=== PATIENT | female | born 1965 | race Caucasian/White ===

== ENCOUNTER 2016-10-20 13:58 | Outpatient (CLI) | payer OTHER | END 2016-10-20 13:59 | disposition home or self-care (01) | DX: Z12.31 Encounter for screening mammogram for malignant neoplasm of breast (principal); Z80.3 Family history of malignant neoplasm of breast ==

== ENCOUNTER 2019-01-10 13:01 | Outpatient (CLI) | payer OTHER ==
--- NOTE | 2019-01-11 08:46 | Mammography Report ---
Reason: SCREENING MAMMO Procedure Date: 01/10/2019 Accession Number: [id number] / [id number] Procedure: MGN - Screening Mammo Dig Bilat CPT Code: FULL RESULT: EXAM: Screening Mammo Dig Bilat DATE: 01/10/2019 1:46 PM CLINICAL HISTORY: Screening encounter. History of nulliparity. History of benign left breast biopsy in 2012. Family history of breast cancer in the mother at the age of 46. TECHNIQUE: (B) - Bilateral CC and MLO views were obtained. A left laterally exaggerated CC views obtained. COMPARISON: 10/20/2016 through 10/22/2009. PARENCHYMAL PATTERN: (D) - The breast(s) demonstrate(s) heterogeneously dense fibroglandular parenchyma. FINDINGS: A left breast biopsy marker and its surrounding area are unchanged. There are coarse typically benign calcifications. There are no suspicious masses, calcifications, or areas of distortion. IMPRESSION: Benign findings. BI-RADS category 2. RECOMMENDATION: (ANNUAL) - Recommend routine annual screening mammography. Left breast. BI-RADS CATEGORY: (2) - Benign Findings. STANDARD QUALIFYING STATEMENTS: 1. This examination was not reviewed with the aid of Computer-Aided Detection (CAD). 2. A negative or benign imaging report should not preclude biopsy if clinically suspicious findings are present. 3. Dense breasts may obscure an underlying neoplasm. 4. This examination was reviewed without the aid of 3D breast imaging (tomosynthesis).
== END 2019-01-10 13:02 | disposition home or self-care (01) ==
LOC: DI.N 13:01
PROVIDERS: ATTEND Internal Medicine
DX: Z12.31 Encounter for screening mammogram for malignant neoplasm of breast (principal); Z80.3 Family history of malignant neoplasm of breast
CPT/HCPCS: 77067

== ENCOUNTER 2020-04-09 13:36 | Outpatient (CLI) | payer OTHER ==
--- NOTE | 2020-04-11 08:15 | Mammography Report ---
BILATERAL DIGITAL SCREENING MAMMOGRAM 3D/2D: 04/09/2020 CLINICAL: Family history of breast cancer. Routine screening. Comparison is made to exams dated: 01/10/2019 mammogram, 10/20/2016 mammogram - [email or web address], 02/17/2014 mammogram, 03/14/2013 mammogram, 06/22/2012 ultrasound, and 06/22/2012 mammogram - [facility]. The tissue of both breasts is heterogeneously dense. This may lower the sensitivity of mammograp hy. There are biopsy clips in the left breast. No significant masses, calcifications, or other findings are seen in either breast. There has been no significant interval change. IMPRESSION: NEGATIVE There is no mammographic evidence of malignancy. A 1 year screening mammogram is recommended. This exam was interpreted at Station ID: [id number]. NOTE: For mammograms, a report in lay terms will be sent to the patient. Approximately 15% of breast malignancies will not be visualized mammographically. In the management of a palpable breast mass, a negative mammogram must not discourage biopsy of a clinically suspicious lesion. Electronically Signed By: Pb colon/emanirad:04/09/2020 18:31:02 ACR BI-RADS Category 1: Negative 3341F PARENCHYMAL PATTERN: (D) - The breast(s) demonstrate(s) heterogeneously dense fibroglandular rosemary morrissey. BI-RADS CATEGORY: (1) - 1 RECOMMENDATION: (ANNUAL) - Recommend routine annual screening mammography. [id number] 1 year screening LATERALITY: (B)
== END 2020-04-09 13:37 | disposition home or self-care (01) ==
LOC: DI.N 13:36
PROVIDERS: ATTEND Internal Medicine
DX: Z12.31 Encounter for screening mammogram for malignant neoplasm of breast (principal); Z80.3 Family history of malignant neoplasm of breast
CPT/HCPCS: 77063; 77067

== ENCOUNTER 2021-08-20 12:55 | Outpatient (CLI) | payer OTHER ==
--- NOTE | 2021-08-21 10:17 | Mammography Report ---
BILATERAL DIGITAL SCREENING MAMMOGRAM 3D/2D: 08/20/2021 CLINICAL: Routine screening. Family history of breast cancer. Comparison is made to exams dated: 04/09/2020 mammogram, 01/10/2019 mammogram, and 10/20/2016 mammogram - [facility]. The tissue of both breasts is heterogeneously dense. This may lower the sensitivity of mammography. There is a biopsy clip in the left breast. No significant masses, calcifications, or other findings are seen in either breast. There has been no significant interval change. IMPRESSION: NEGATIVE There is no mammographic evidence of malignancy. A 1 year screening mammogram is recommended. This exam was interpreted at Station ID: [id number]. NOTE: For mammograms, a report in lay terms will be sent to the patient. Approximately 15% of breast malignancies will not be visualized mammographically. In the management of a palpable breast mass, a negative mammogram must not discourage biopsy of a clinically suspicious lesion. Electronically Signed By: James gonsalez/pranay:08/20/2021 15:49:03 ACR BI-RADS Category 1: Negative 3341F PARENCHYMAL PATTERN: (D) - The breast(s) demonstrate(s) heterogeneously dense fibroglandular rosemary morrissey. BI-RADS CATEGORY: (1) - 1 RECOMMENDATION: (ANNUAL) - Recommend routine annual screening mammography. [id number] 1 year screening LATERALITY: (B)
== END 2021-08-20 12:56 | disposition home or self-care (01) ==
LOC: DI.S 12:55
PROVIDERS: ATTEND Internal Medicine
DX: Z12.31 Encounter for screening mammogram for malignant neoplasm of breast (principal); Z80.3 Family history of malignant neoplasm of breast

== ENCOUNTER 2022-11-19 13:11 | Outpatient (CLI) | payer OTHER ==
--- NOTE | 2022-11-20 10:16 | Mammography Report ---
BILATERAL DIGITAL SCREENING MAMMOGRAM 3D/2D: 11/19/2022 CLINICAL: Routine screening. Family history of breast cancer. Comparison is made to exams dated: 08/20/2021 mammogram, 04/09/2020 mammogram, and 01/10/2019 mammogram - . Both breasts are heterogeneously dense, which may obscure small masses (category c / 51-75% glandular tissue). There is a biopsy clip in the left breast. No significant masses, calcifications, or other findings are seen in either breast. There has been no significant interval change. IMPRESSION: NEGATIVE There is no mammographic evidence of malignancy. A 1 year screening mammogram is recommended. Based on Tyrer-Cuzick model (a risk assessment model), the patient's lifetime risk is 28.4% and her 1 0 year risk is 10.6%. If a patient has an elevated risk, a more comprehensive evaluation should be co nsidered and/or a referral to a genetic counselor. The [place] [employer], [place] [employer], and NCCN Guidelines advise the consideration of Breast MRI as an adjunct to screening mammo graphy in patients whose "Lifetime risk to develop breast cancer" is 20% or higher. This exam was interpreted at Station ID: [id number]. NOTE: For mammograms, a report in lay terms will be sent to the patient. Approximately 15% of breast malignancies will not be visualized mammographically. In the management of a palpable breast mass, a negative mammogram must not discourage biopsy of a clinically suspicious lesion. Electronically Signed By: Ceferino gorman/pranay:11/20/2022 07:42:56 letter sent: No_Letter ACR BI-RADS Category 1: Negative 3341F PARENCHYMAL PATTERN: (D) - The breast(s) demonstrate(s) heterogeneously dense fibroglandular parenchy ma. BI-RADS CATEGORY: (1) - 1 Mammogram [id number] 1 year screening LATERALITY: (B)
== END 2022-11-19 13:12 | disposition home or self-care (01) ==
LOC: DI.S 13:11
PROVIDERS: ATTEND Internal Medicine
DX: Z12.31 Encounter for screening mammogram for malignant neoplasm of breast (principal); Z80.3 Family history of malignant neoplasm of breast

== ENCOUNTER 2023-11-07 17:48 | Emergency (ER) | payer OTHER ==
[2023-11-07 18:00] VITALS: O2SAT 100
--- NOTE | 2023-11-07 18:00 | ED Physician Documentation ---
PD HPI NVD - Stated complaint Stated Complaint: VOMIT/DIARRHEA - Chief complaint Chief Complaint: Abd Pain - Additonal information Additional information: 58-year-old female no pertinent past medical history presents emergency department for 3 days of nausea vomiting diarrhea. Patient reports that she has had 29 episodes of diarrhea since Thursday with no alleviation of symptoms. She says that she feels very dehydrated with generalized abdominal pain and discomfort she said that she is able to keep down some chicken noodle soup today but now feels like it is stuck in her left lower quadrant. She says she is in a 10 out of 10 abdominal pain feels sharp shooting and it tends to move around. No hematemesis no dark black bowel movements denies any history of this happening before. She said that she originally thought maybe she ate something and was experiencing food poisoning but given that the symptoms are lasting now for 4 days she is worried that maybe she got a GI bug and is worried about dehydration. Supportive friend at bedside and drove her into the emergency department. No recent medication changes she says that she is unsure if she has had any fevers or chills but she is alternating between hot and cold quite frequently at home has not checked her temperature. PD PAST MEDICAL HISTORY - Allergies Allergies/Adverse Reactions: Allergies Allergy/AdvReac Type Severity Reaction Status Date / Time cortisone Allergy Hives Verified 11/07/23 17:56 atropine [From Lomotil] AdvReac Nausea Verified 11/07/23 17:55 codeine AdvReac Hallucinati Verified 11/07/23 17:56 ons diphenoxylate [From Lomotil] AdvReac Nausea Verified 11/07/23 17:55 - Social History Does the pt smoke?: Yes Smoking Status: Current every day smoker Does the pt have substance abuse?: No Substance Use and Type: Marijuana PD ED PE NORMAL - Vitals Vital signs reviewed: Yes - General General: Alert and oriented X 3, No acute distress, Well developed/nourished - HEENT HEENT: Atraumatic, PERRL - Cardiac Cardiac: RRR, No murmur, No gallop, Strong equal pulses - Respiratory Respiratory: No respiratory distress, Clear bilaterally - Abdomen Abdomen: Normal bowel sounds, Soft, Non distended, Other (Generalized abdominal tenderness with palpation) - Back Back: No CVA TTP - Derm Derm: Normal color, Warm and dry, No rash - Extremities Extremities: No edema, No calf tenderness / cord Results - Vitals Vitals: Vital Signs - 24 hr 11/07/23 11/07/23 11/07/23 17:49 19:43 20:04 Temperature 35.8 C L 37.3 C Heart Rate 93 73 72 Respiratory 28 H 16 18 Rate Blood Pressure 146/93 H 109/93 H 124/62 O2 Saturation 100 100 100 Oxygen O2 Source Room air - Labs Labs: Laboratory Tests 11/07/23 11/07/23 11/07/23 18:04 18:04 18:25 WBC 6.9 RBC 5.54 H Hgb 16.0 Hct 48.1 H MCV 86.8 MCH 28.9 MCHC 33.3 RDW 12.6 Plt Count 240 MPV 9.9 Neut # (Auto) 4.7 Lymph # (Auto) 1.5 [place] # (Auto) 0.7 Eos # (Auto) 0.0 Baso # (Auto) 0.0 Absolute Nucleated RBC 0.00 Nucleated RBC % 0.0 Sodium 135 Potassium 3.4 L Chloride 103 Carbon Dioxide 19 L Anion Gap 13.0 BUN 20 Creatinine 0.8 Estimated GFR (MDRD) 74 L Glucose 117 H Calcium 10.1 Magnesium 1.5 L Total Bilirubin 1.0 AST 27 ALT 29 Alkaline Phosphatase 65 Total Protein 8.2 Albumin 4.8 Globulin 3.4 Albumin/Globulin Ratio 1.4 Lipase 16 Urine Color Urine Clarity Urine pH Ur Specific [place] Urine Protein Urine Glucose (UA) Urine Ketones Urine Occult Blood Urine Nitrite Urine Bilirubin Urine Urobilinogen Ur Leukocyte Esterase Urine RBC Urine WBC Ur Squamous Epith Cells Urine Bacteria Urine Casts Urine Mucus Ur Microscopic Review Urine Culture Comments Nasal Adenovirus (PCR) NOT DETECTED Nasal B. parapertussis DNA (PCR) NOT DETECTED Nasal Coronavir 229E PCR NOT DETECTED Nasal Coronavir HKU1 PCR NOT DETECTED Nasal Coronavir NL63 PCR NOT DETECTED Nasal Coronavir OC43 PCR NOT DETECTED Nasal Enterovir/Rhinovir PCR NOT DETECTED Nasal Influenza B PCR NOT DETECTED Nasal Influenza A PCR NOT DETECTED Nasal Parainfluen 1 PCR NOT DETECTED Nasal Parainfluen 2 PCR NOT DETECTED Nasal Parainfluen 3 PCR NOT DETECTED Nasal Parainfluen 4 PCR NOT DETECTED Nasal RSV (PCR) NOT DETECTED Nasal B.pertussis DNA PCR NOT DETECTED Nasal C.pneumoniae (PCR) NOT DETECTED Josemanuel Human Metapneumo PCR NOT DETECTED Nasal M.pneumoniae (PCR) NOT DETECTED Nasal SARS-CoV-2 (PCR) NOT DETECTED 11/07/23 19:15 WBC RBC Hgb Hct MCV MCH MCHC RDW Plt Count MPV Neut # (Auto) Lymph # (Auto) [place] # (Auto) Eos # (Auto) Baso # (Auto) Absolute Nucleated RBC Nucleated RBC % Sodium Potassium Chloride Carbon Dioxide Anion Gap BUN Creatinine Estimated GFR (MDRD) Glucose Calcium Magnesium Total Bilirubin AST ALT Alkaline Phosphatase Total Protein Albumin Globulin Albumin/Globulin Ratio Lipase Urine Color DARK YELLOW Urine Clarity CLEAR Urine pH 6.0 Ur Specific [place] 1.025 Urine Protein 30 H Urine Glucose (UA) NEGATIVE Urine Ketones 40 H Urine Occult Blood NEGATIVE Urine Nitrite NEGATIVE Urine Bilirubin MODERATE H Urine Urobilinogen 0.2 (NORMAL) Ur Leukocyte Esterase NEGATIVE Urine RBC 0-5 Urine WBC 0-3 Ur Squamous Epith Cells RARE Squamous Urine Bacteria Rare Urine Casts 6-10 Hyaline Casts Urine Mucus Few Strands Ur Microscopic Review INDICATED Urine Culture Comments NOT INDICATED Nasal Adenovirus (PCR) Nasal B. parapertussis DNA (PCR) Nasal Coronavir 229E PCR Nasal Coronavir HKU1 PCR Nasal Coronavir NL63 PCR Nasal Coronavir OC43 PCR Nasal Enterovir/Rhinovir PCR Nasal Influenza B PCR Nasal Influenza A PCR Nasal Parainfluen 1 PCR Nasal Parainfluen 2 PCR Nasal Parainfluen 3 PCR Nasal Parainfluen 4 PCR Nasal RSV (PCR) Nasal B.pertussis DNA PCR Nasal C.pneumoniae (PCR) Jose[place] Human Metapneumo PCR Nasal M.pneumoniae (PCR) Nasal SARS-CoV-2 (PCR) - Rads (name of study) CT abdomen pelvis Relevant Findings:: Final report received, EMP independent interpretation of test, Other (No acute abdominal abnormalities or findings at this time. Left posterior lateral 1.6 cm enhancing uterine focus possible fibroid) PD Medical Decision Making - ED course ED course: 58-year-old female presents to the emergency department for nausea vomiting diarrhea. Differentials include viral infection, food poisoning, Small bowel obstruction, gastroparesis. Labs are complete no significant abnormalities no leukocytosis no anemia, potassium 3.4 she was given 20 mEq of p.o. potassium, magnesium 1.5 she was given 400 mg of p.o. magnesium. No other significant abnormalities or findings. Respiratory panel is negative urinalysis shows moderate bilirubin with ketones and protein but no leukocytes or nitrates. CT abdomen pelvis was also complete and it did not show any acute abnormalities or findings at this point in time which could be contributing to patient's nausea vomiting diarrhea and abdominal pain. She is told to follow-up with her primary care provider for possible fibroid and further outpatient imaging and workup but this is not related to the abdominal pain that she is experiencing. She received 1 dose of IV Dilaudid as well as 2 doses of Zofran here in the emergency department as well as 1 L of IV fluids and feels almost entirely better and almost complete resolution of symptoms. She is told to follow-up with primary care provider she is given strict ER return precautions all questions have been answered she has a ride home with her friend and was sent home with a take-home pack of Zofran to help with any lingering nausea that may she may be experiencing. She has had no episodes of diarrhea since she has been here so we are unable to collect a stool sample. Departure - Departure Disposition: 01 Home, Self Care Clinical Impression: Nausea vomiting and diarrhea, Hypomagnesemia, Dehydration Instructions: Dehydration, ED Diet [place] Comments: Thank you for trusting us with your care. We have completed a respiratory panel, labs, CT we are not seeing any acute abnormalities or findings at this point in time. Your magnesium and potassium were very mildly suppressed and we replaced both of them here in the emergency department going home drink fluids with electrolytes in them such as Gatorade or coconut water to help with rehydrating her body. Please follow-up with your primary care provider for further evaluation. We have given you a liter of IV fluids here in the emergency department and make sure going home you are continuing to drink plenty of fluids. We are also sending home with a couple Zofran you can take 4 to 8 mg every 8 hours For nausea. Please come back to the emergency department for starting develop any fevers chills Or any other worsening concerning symptoms. EXAM: [id number] CT/ABPEW ([id number]) PROCEDURE: Abdomen/Pelvis W INDICATIONS: generalized abd pain, fevers chills CONTRAST: 100 ML OMNI 300 TECHNIQUE: After the administration of intravenous contrast, a CT scan of the abdomen and pelvis was performed. Images were recorded and evaluated at appropriate window settings. Reformats: coronal and sagittal. For radiation dose reduction, the following was used: automated exposure control, adjustment of mA and/or kV according to patient size. COMPARISON: None. FINDINGS: Image quality: Diagnostic. Lower chest: Unremarkable. Liver: No solid mass. Gallbladder and biliary tree: No radiopaque stones or wall thickening. No biliary dilation. Spleen: No splenomegaly. Pancreas: No pancreatic ductal dilation. Adrenals: No adrenal nodule. Kidneys and ureters: No hydronephrosis. No renal cystic lesion which requires follow up. No solid mass. Stomach, bowel and peritoneum: No bowel distension. No pathologic free fluid. Oral caliber appendix in the right lower quadrant. Lymph nodes: No central or retroperitoneal adenopathy. Vessels: No infrarenal aortic aneurysm. PELVIS Reproductive organs: 1.6 cm enhancing focus at the posterior lateral left aspect of the uterus (2/114).. Bladder: No abnormal wall thickening, accounting for underdistention. Pelvic lymph nodes: No pelvic adenopathy by size criteria. Bones: Vertebral body compression fracture. Degenerative changes of the visualized spine, worse at L3-L4 and L4-L5. Grade 1 anterolisthesis of L4 and L5. Other: No significant ventral or inguinal hernia. IMPRESSION: No acute findings to explain patient's symptoms. Left posterolateral 1.6 cm enhancing uterine focus, possible fibroid. Recommend further evaluation with nonemergent pelvic ultrasound. Forms: PCP List Discharge Date/Time: 11/07/23 20:59
[2023-11-07 18:10] LABS: BASOPHILS % (AUTO) 0.3 %; EOSINOPHILS % (AUTO) 0.1 %; HCT - HEMATOCRIT 48.1 % (37.0-47.0); LYMPHOCYTES # (AUTO) 1.5 10^3/uL (1.5-3.5); LYMPHOCYTES % (AUTO) 21.7 %; MEAN CORPUSCULAR HEMOGLOBIN 28.9 pg (27.0-31.0); MEAN CORPUSCULAR HGB CONC 33.3 g/dL (32.0-36.0); MEAN CORPUSCULAR VOLUME 86.8 fL (81.0-99.0); MEAN PLATELET VOLUME 9.9 fL (7.9-10.8); MONOCYTES # (AUTO) 0.7 10^3/uL (0.0-1.0); MONOCYTES % (AUTO) 9.7 %; NEUTROPHILS # (AUTO) 4.7 10^3/uL (1.5-6.6); NEUTROPHILS % (AUTO) 68.1 %; PLT - PLATELET COUNT 240 10^3/uL (130-450); RED BLOOD COUNT 5.54 10^6/uL (4.20-5.40); RED CELL DISTRIBUTION WIDTH 12.6 % (12.0-15.0); WHITE BLOOD COUNT 6.9 x10^3/uL (4.8-10.8)
[2023-11-07 18:18] LABS: MAGNESIUM 1.5 mg/dL (1.7-2.3)
[2023-11-07] MEDS ORDERED: iohexoL-300 100 ML VIAL ONE (18:23)
[2023-11-07 18:24] LABS: ALBUMIN 4.8 g/dL (3.2-5.5); ALBUMIN/GLOBULIN RATIO 1.4 (1.0-2.2); CALCIUM 10.1 mg/dL (8.5-10.3); CREATININE 0.8 mg/dL (0.6-1.3); POTASSIUM 3.4 mmol/L (3.5-4.5); TOTAL PROTEIN 8.2 g/dL (6.4-8.9)
[2023-11-07] MEDS: SODIUM CHLORIDE 0.9% 1,000 ML IV ONE (18:27)
[2023-11-07] MEDS: ONDANSETRON 4 MG/2 ML VIAL IVP STA ×2 (18:27→19:11)
[2023-11-07] MEDS: POTASSIUM CHLORIDE 20 MEQ TABLET PO STA (19:11)
[2023-11-07] MEDS: MAGNESIUM OXIDE 400 MG TABLET PO STA (19:11)
[2023-11-07 19:27] LABS: BILIRUBIN,URINE MODERATE (NEGATIVE); CLARITY,URINE CLEAR (CLEAR); GLUCOSE, URINE (UA) NEGATIVE (NEGATIVE); KETONES,URINE (UA) 40 mg/dL (NEGATIVE); LEUKOCYTE ESTERASE, URINE NEGATIVE (NEGATIVE); NITRITE,URINE NEGATIVE (NEGATIVE); OCCULT BLOOD,URINE NEGATIVE (NEGATIVE); PROTEIN,URINE 30 mg/dL (NEGATIVE); UROBILINOGEN,URINE 0.2 (NORMAL) E.U./dL (NORMAL)
[2023-11-07 19:36] LABS: BACTERIA,URINE Rare /HPF (None Seen); CASTS, URINE 6-10 Hyaline Casts /LPF; MUCUS,URINE Few Strands; RBC,URINE 0-5 /HPF (0-5); SQUAMOUS EPITHELIAL CELL,UR RARE Squamous (<= Few); WBC,URINE 0-3 /HPF (0-5)
[2023-11-07] MEDS: iohexoL-300 100 ML VIAL IVP ONE (19:39)
[2023-11-07 19:45] LABS: B. PARAPERTUSSIS- RESP PCR PAN NOT DETECTED; B. PERTUSSIS- RESP PCR PANEL NOT DETECTED; C. PNEUMONIAE- RESP PCR PANEL NOT DETECTED; CORONAVIRUS 229E-RESP PCR NOT DETECTED; CORONAVIRUS HKU1-RESP PCR NOT DETECTED; CORONAVIRUS NL63-RESP PCR NOT DETECTED; CORONAVIRUS OC43-RESP PCR NOT DETECTED; HUMAN METAPNEUMOVIRUS NOT DETECTED; INFLUENZA A- RESP PCR PANEL NOT DETECTED; INFLUENZA B - RESP PCR PANEL NOT DETECTED; M. PNEUMONIAE- RESP PCR PANEL NOT DETECTED; PARAINFLUENZA VIRUS 1 NOT DETECTED; PARAINFLUENZA VIRUS 2 NOT DETECTED; PARAINFLUENZA VIRUS 3 NOT DETECTED; PARAINFLUENZA VIRUS 4 NOT DETECTED; RHINOVIRUS/ENTEROVIRUS NOT DETECTED; RSV- RESP PCR PANEL NOT DETECTED; SARS-CoV-2 -RESP PCR PANEL NOT DETECTED
--- NOTE | 2023-11-07 19:54 | CT Report ---
PROCEDURE: Abdomen/Pelvis W INDICATIONS: generalized abd pain, fevers chills CONTRAST: 100 ML OMNI 300 TECHNIQUE: After the administration of intravenous contrast, a CT scan of the abdomen and pelvis was performed. Images were recorded and evaluated at appropriate window settings. Reformats: coronal and sagittal. F or radiation dose reduction, the following was used: automated exposure control, adjustment of mA and /or kV according to patient size. COMPARISON: None. FINDINGS: Image quality: Diagnostic. Lower chest: Unremarkable. Liver: No solid mass. Gallbladder and biliary tree: No radiopaque stones or wall thickening. No biliary dilation. Spleen: No splenomegaly. Pancreas: No pancreatic ductal dilation. Adrenals: No adrenal nodule. Kidneys and ureters: No hydronephrosis. No renal cystic lesion which requires follow up. No solid mas s. Stomach, bowel and peritoneum: No bowel distension. No pathologic free fluid. Oral caliber appendix i n the right lower quadrant. Lymph nodes: No central or retroperitoneal adenopathy. Vessels: No infrarenal aortic aneurysm. PELVIS Reproductive organs: 1.6 cm enhancing focus at the posterior lateral left aspect of the uterus (2/114 ).. Bladder: No abnormal wall thickening, accounting for underdistention. Pelvic lymph nodes: No pelvic adenopathy by size criteria. Bones: Vertebral body compression fracture. Degenerative changes of the visualized spine, worse at L3 -L4 and L4-L5. Grade 1 anterolisthesis of L4 and L5. Other: No significant ventral or inguinal hernia. IMPRESSION: No acute findings to explain patient's symptoms. Left posterolateral 1.6 cm enhancing uterine focus, possible fibroid. Recommend further evaluation [facility] nonemergent pelvic ultrasound. Reviewed by: Patricia Jimenez MD, PhD on 11/07/2023 7:53 PM PDT Approved by: Patricia Jimenez MD, PhD on 11/07/2023 7:53 PM PDT Station ID: [id number]
[2023-11-07] MEDS: HYDROmorphone 0.5 MG/0.5 ML SYRINGE IVP STA (20:06)
[2023-11-07 20:10] VITALS: BP 124/62
[2023-11-07] MEDS: ONDANSETRON ODT 4 MG Prepack 2 TL PRN (20:44)
== END 2023-11-07 20:59 | disposition home or self-care (01) ==
LOC: ED 17:48
DX: R11.2 Nausea with vomiting, unspecified (principal); R19.7 Diarrhea, unspecified; E83.42 Hypomagnesemia; E86.0 Dehydration; F17.200 Nicotine dependence, unspecified, uncomplicated
CPT/HCPCS: 36415; 74177; 80053; 81001; 83690; 83735; 85025; 87633; 96361; 96374; 96375; 96376; 99284; 99285; A9270; J1170; Q9967; 81003; 87086; 87507